=== PATIENT | female | born 1995 | race Caucasian/White ===

== ENCOUNTER 2017-06-23 14:35 | Emergency (ER) | payer OTHER ==
[~2017-06-23] VITALS: Ht 167.6 cm; Wt 87.5 kg
[2017-06-23 14:45] VITALS: TEMP 37.7; Ht 167.6 cm; Wt 87.5 kg
[2017-06-23] MEDS ORDERED: PROCHLORPERAZINE 5 MG/ML 2 ML VIAL IV STA (15:19)
[2017-06-23] MEDS ORDERED: SODIUM CHLORIDE 0.9% 1000ML 1,000 ML IV STA (15:19)
[2017-06-23] MEDS ORDERED: KETOROLAC TROMETHAMINE 30 MG/ML VIAL IV STA (15:19)
[2017-06-23] MEDS ORDERED: DiphenhydrAMINE HCL 50 MG/ML VIAL IV STA (15:19)
[2017-06-23 15:40] VITALS: BP 117/74; PULSE 104; O2SAT 98
[2017-06-23] MEDS ORDERED: LISD40CA PO (16:14)
[2017-06-23] MEDS ORDERED: GABA-113 PO (16:14)
[2017-06-23] MEDS ORDERED: JNL12021 PO (16:14)
--- NOTE | 2017-06-23 16:51 | EMERGENCY ROOM VISIT NOTE ---
ED Visit Note First contact with patient: 14:57 CHIEF COMPLAINT: Migraine headache 3 days HISTORY OF PRESENT ILLNESS: Patient is a 22-year-old white female who presents to the emergency department combative by her sister for evaluation of a migraine headache. She states that her symptoms started about 3 days ago. She reports a throbbing, frontal headache that has been constant and progressively worsening over the last several days. She does have a history of migraine headaches and states that this headache doesn't feel similar. She is on gabapentin preventatively for her migraines, but this is a new medication initially only started about 1 week ago. She tried taking Excedrin Migraine without relief. She states the headache was so severe last night that she was in tears. She presently rates her discomfort a 9/10. This morning she states that she woke up with a sore throat, body and muscle aches and congestion in her chest with a minor cough. She felt hot and cold at home but did not record her temperature with a thermometer. She does report close contacts who have been sick with mono. The patient did not take any medication today. She denies any associated lightheadedness, dizziness, photo or phonophobia, nausea or vomiting. She denies any weakness or numbness of the extremities, no difficulty with balance, speech or coordination. She denies any posterior neck pain or stiffness. The patient reports a similar headache associated with a GI illness on Angela Eve, for which she had to go to the emergency department while she was at home. REVIEW OF SYSTEMS: Review of systems as per HPI. All other systems reviewed were negative. 10 systems reviewed. PMH: Electronic medical records are reviewed and summarized as above/below. See Problem List. SOCIAL HISTORY: Patient is a college student who lives in an apartment locally with a roommate. She does not smoke. PHYSICAL EXAM: Vital Signs: Reviewed Nurse's notes. Temperature 37.7C orally in triage. General Appearance: Patient is a well-appearing, nontoxic 22-year-old white female who is awake and alert and in no acute distress. HEENT: Normocephalic, atraumatic. Pupils equal, round, reactive to light and accommodation. EOMs intact without nystagmus. Sclera are anicteric. Tympanic membranes intact, with normal landmarks. External canals are clear. Oral and nasopharynx are clear. Mucous membranes are moist. Neck: Supple, no cervical lymphadenopathy, no meningismus Heart: Regular rate and rhythm, S1 and S2 Lungs: Clear to auscultation bilaterally, no wheezes Rales or rhonchi, no increased work of breathing Abdomen: Soft nontender nondistended. Normal active bowel sounds. No rebound. No guarding. Back: No midline tenderness to palpation. : No CVA tenderness to palpation. Skin: Warm, no diaphoresis, no rashes. Extremities: No cyanosis, clubbing, or edema Neurologic: Patient is awake alert, and oriented x 3. Cranial nerves 2-12 are grossly intact. Motor 5 out of 5 strength bilateral upper extremities and lower extremities. No gross sensory deficits. Reflexes are 2+ throughout. Normal gait. Negative Romberg and pronator drift. EMERGENCY DEPARTMENT COURSE: The patient was seen and evaluated as above. Old records were reviewed. She presents to the emergency department for evaluation of a migraine headache 3 days, with onset of influenza-like symptoms this morning. On exam she does have a low-grade fever, but has no findings consistent with meningitis or encephalitis. She reports that the headache is similar to her typical migraine presentation, and is not the worst headache of her life. IV lock was initiated. Patient was hydrated with a liter of normal saline solution, and medicated with Toradol 30 mg, Compazine 10 mg and Benadryl 25 mg IV. She was reassessed, and was resting comfortably. She reported that her headache had improved, and rated her discomfort a 2/10 at discharge. I did discuss performing an influenza swab with the patient, however she declines. The patient was encouraged to rest at home, remain well-hydrated, and and to treat herself symptomatically. She was educated on the worrisome signs or symptoms for which return to the emergency department. Differential includes: acute intracranial bleed, meningitis, encephalitis, mass or mass effect, sinusitis, infection, migraine, tumor, headache, temporal arteritis and carbon monoxide exposure. Medication reconciliation: I attest that I have personally reviewed the patient' s current medication list. Blood pressure screening : Patient was found to have normal blood pressure on screening and does not require follow-up. Problem List Medical Problems: (1) Migraine Status: Chronic Surgical Problems: (1) History of tonsillectomy Status: Resolved Current/Historical Medications Scheduled Ethinyl Estradiol/Norethindr (06/30), 1 TAB PO DAILY Gabapentin (Neurontin), Unknown Dose PO HS Lisdexamfetamine Dimesylate (Vyvanse), 40 MG PO DAILY Allergies Coded Allergies: No Known Allergies (Unverified , 06/23/17) Vital Signs Date Time Temp Pulse Resp B/P (MAP) Pulse Ox O2 Delivery O2 Flow Rate FiO2 06/23/17 15:40 104 16 117/74 98 Room Air 06/23/17 14:45 37.7 100 20 124/73 95 Room Air Medications Administered Medications (Trade) Dose Ordered Sig/Domenic Route Start Time Stop Time Status Last Admin Dose Admin Sodium Chloride 1,000 ml @ 999 mls/hr Q1H1M STAT IV 06/23/17 15:19 06/23/17 16:19 DC 06/23/17 15:43 999 MLS/HR Ketorolac Tromethamine (Toradol Inj) 30 mg NOW STAT IV 06/23/17 15:19 06/23/17 15:20 DC 06/23/17 15:45 30 MG Prochlorperazine Edisylate (Compazine Inj) 10 mg NOW STAT IV 06/23/17 15:19 06/23/17 15:20 DC 06/23/17 15:44 10 MG Diphenhydramine HCl (Benadryl Inj) 25 mg NOW STAT IV 06/23/17 15:19 06/23/17 15:20 DC 06/23/17 15:45 25 MG Departure Information Impression Primary Impression: Headache Additional Impression: Viral illness Patient Instructions [facility] Additional Instructions DO NOT drive, drink alcohol, operate machinery, or perform dangerous activities today. You were given medications in the ER that can affect your ability to safely function or operate a vehicle. Rest today in a quiet, peaceful, dark environment and get a full 8-10 hrs of sleep tonight. Avoid loud noises, smoke/smoking, alcohol, bright lights, stress, or physical exertion today to minimize the chance the headache may return. Continue current medications. Ibuprofen(Motrin, Advil) may be used for fever or pain. Use 600mg every six hours as needed. Take with food. Avoid using more than 2400mg in a 24 hour period. Do not use 2400mg per day for more than three consecutive days without physician direction. Prolonged inappropriate use can lead to stomach upset or ulcers. (AND/OR) Acetaminophen(Tylenol) may be used for fever or pain. Use 1000mg every six hours as needed. Avoid using more than 3000mg in a 24 hour period. Pseudoephedrine(Sudaphed): 30-60mg every 6 hours as needed for nasal congestion. Do not take this with other stimulant products or supplements. Guaifenesin (Mucinex) : Take 1200 mg every 12 hours as needed for nasal/chest congestion, to help thin secretions. Rest and drink plenty of fluids. Controlling your fever with Tylenol and Ibuprofen as above will make you feel better. Wash your hands after nose blowing, sneezing, or coughing. Most germs are spread through contact, therefore improper hygiene may result in your close contacts and loved ones becoming ill just like you. Continue current medications. Return to the ER for passing out, worsening headache, vision problems, neck stiffness/pain, fevers, vomiting, worsening of your condition, or as needed. Follow up with your primary physician in 2-3 days for a recheck of your current condition. Problem Qualifiers
== END 2017-06-23 17:13 | disposition home or self-care (01) ==
LOC: C.EDB 14:37
DX: G43.909 Migraine, unspecified, not intractable, without status migrainosus (principal); B34.9 Viral infection, unspecified